=== PATIENT | female | born 1995 | race Hispanic/Latino ===

== ENCOUNTER 2024-08-10 18:59 | Emergency (ER) | payer OTHER ==
[2024-08-10 20:41] LABS: #Basophils 0.04 10x3/uL (0.0-0.2); #Eosinophils 0.19 10x3/uL (0.0-0.5); #Monocytes 0.99 10x3/uL (0.0-1.1); #Neutrophils 7.02 10x3/uL (1.5-8.4); %Basophils 0.3 % (0.0-2.0); %Eosinophils 1.6 % (0.0-6.0); %Lymphocytes 28.3 % (18.0-47.0); %Monocytes 8.6 % (0.0-10.0); %Neutrophils 60.8 % (40.0-75.0); Hematocrit 34.1 % (34.9-44.5); Hemoglobin 11.3 g/dL (12.0-15.5); Mean Corpuscular HGB CONC 33.1 g/dL (32.0-36.0); Mean Corpuscular Hemoglobin 29.7 pg (27.0-33.0); Mean Corpuscular Volume 89.7 fL (81.6-98.3); Mean Platelet Volume 9.2 fL (7.4-10.4); Platelet Count 292 10x3/uL (150-450); RBC Distribution Width 12.4 % (11.5-14.5); White Blood Cell (WBC) Count 11.6 10x3/uL (3.5-10.5)
[2024-08-10 20:50] LABS: ALT (SGPT) 37 U/L (8-55); AST (SGOT) 24 U/L (5-34); Albumin 3.4 g/dL (3.5-5.0); Alkaline Phosphatase 60 U/L (40-110); Anion Gap 14 mmol/L (10-20); BUN (Urea Nitrogen) 9 mg/dL (7.0-18.7); Bilirubin, Total 0.2 mg/dL (0.2-1.2); Calc. Creatinine Clearance 0 mL/min (70-130); Calcium 9.5 mg/dL (7.8-10.44); Carbon Dioxide 22 mmol/L (22-29); Chloride 104 mmol/L (98-107); Estimated GFR 116; Globulin 3.6 g/dL (2.4-3.5); Glucose 74 mg/dL (70-105); Potassium 3.6 mmol/L (3.5-5.1); Sodium 136 mmol/L (136-145)
[2024-08-10 22:08] LABS: Bilirubin Neg (Negative); Blood, Urine Negative (Negative); Clarity Slightly Cloudy (Clear); Glucose, Urine (Dipstick) Normal (Negative); Ketone, Urine 5 mg/dL (Negative); Leukocyte Negative (Negative); Nitrite Negative (Negative); Protein, Urine (Dipstick) Negative (Neg-Trace); Urobilinogen Normal mg/dL (Less than 2)
[2024-08-10 22:30] LABS: CAUTI Indications for Culture Pregnancy; RBC/HPF 0-3 HPF (0-3); WBC/HPF 0-3 HPF (0-3)
[2024-08-10 22:31] LABS: Bacteria/HPF 2+ HPF (None Seen); Mucous/LPF Rare LPF (<2+)
[2024-08-10 22:32] LABS: Urine Culture Reflex No No; Urine Culture Reflex Yes Yes
== END 2024-08-10 22:20 | disposition home or self-care (01) ==
LOC: CSHERS 18:59
DX: O99.891 Other specified diseases and conditions complicating pregnancy (principal); R10.32 Left lower quadrant pain
CPT/HCPCS: 36415; 76815; 80053; 81001; 84702; 85025; 86900; 86901; 87086

== ENCOUNTER 2024-08-19 22:47 | Emergency (ER) | payer OTHER ==
[2024-08-19 23:40] LABS: Bilirubin Neg (Negative); Blood, Urine Negative (Negative); Glucose, Urine (Dipstick) Normal (Negative); Ketone, Urine Negative (Negative); Leukocyte Negative (Negative); Nitrite Negative (Negative); Protein, Urine (Dipstick) 15 mg/dl (Neg-Trace); Specific Gravity, Urine 1.015 (1.005-1.030); Urobilinogen Normal mg/dL (Less than 2)
[2024-08-19] MEDS ORDERED: Metoclopramide HCl 10 MG (2 mL) VIAL ONE (23:45)
[2024-08-19 23:53] LABS: #Basophils 0.07 10x3/uL (0.0-0.2); #Eosinophils 0.17 10x3/uL (0.0-0.5); #Monocytes 0.84 10x3/uL (0.0-1.1); #Neutrophils 7.34 10x3/uL (1.5-8.4); %Basophils 0.6 % (0.0-2.0); %Eosinophils 1.5 % (0.0-6.0); %Lymphocytes 27.2 % (18.0-47.0); %Monocytes 7.2 % (0.0-10.0); %Neutrophils 63.1 % (40.0-75.0); Hematocrit 37.4 % (34.9-44.5); Hemoglobin 12.6 g/dL (12.0-15.5); Mean Corpuscular HGB CONC 33.7 g/dL (32.0-36.0); Mean Corpuscular Hemoglobin 29.9 pg (27.0-33.0); Mean Corpuscular Volume 88.6 fL (81.6-98.3); Mean Platelet Volume 9.3 fL (7.4-10.4); Platelet Count 321 10x3/uL (150-450); RBC Distribution Width 12.7 % (11.5-14.5); Red Blood Cell (RBC) Count 4.22 10x6/uL (3.90-5.03); White Blood Cell (WBC) Count 11.6 10x3/uL (3.5-10.5)
[2024-08-20 00:05] LABS: ALT (SGPT) 40 U/L (8-55); AST (SGOT) 25 U/L (5-34); Albumin 3.6 g/dL (3.5-5.0); Alkaline Phosphatase 60 U/L (40-110); Anion Gap 16 mmol/L (10-20); BUN (Urea Nitrogen) 11 mg/dL (7.0-18.7); Bilirubin, Total 0.3 mg/dL (0.2-1.2); Calc. Creatinine Clearance 0 mL/min (70-130); Calcium 9.6 mg/dL (7.8-10.44); Carbon Dioxide 18 mmol/L (22-29); Chloride 106 mmol/L (98-107); Estimated GFR 112; Globulin 4.1 g/dL (2.4-3.5); Glucose 73 mg/dL (70-105); Lipase 36 U/L (8-78); Magnesium 2.2 mg/dL (1.6-2.6); Potassium 3.9 mmol/L (3.5-5.1); Protein, Total 7.7 g/dL (6.0-8.3); Sodium 136 mmol/L (136-145)
[2024-08-20 00:29] LABS: Clarity Hazy (Clear)
[2024-08-20 00:30] LABS: Bacteria/HPF Rare-Few HPF (None Seen); CAUTI Indications for Culture Pregnancy; RBC/HPF 0-3 HPF (0-3)
[2024-08-20 00:31] LABS: Urine Culture Reflex No No; Urine Culture Reflex Yes Yes
== END 2024-08-20 01:11 | disposition home or self-care (01) ==
LOC: CSHERS 22:47
DX: O21.9 Vomiting of pregnancy, unspecified (principal); Z3A.18 18 weeks gestation of pregnancy
CPT/HCPCS: 80053; 81001; 83690; 83735; 85025; 87086; 93005; 96365; J2765

== ENCOUNTER 2025-07-13 11:03 | Day surgery (SDC) | payer OTHER, MEDICAID ==
[2025-07-13] MEDS ORDERED: hydrALAZINE 20 MG/ML VIAL SLOW IVP PRN (11:57)
== END 2025-07-13 14:15 | disposition home health service (06) ==
LOC: CSHLD/OP 11:03
PROVIDERS: ATTEND Family Medicine
DX: O36.8120 Decreased fetal movements, second trimester, not applicable or unspecified (principal); Z3A.24 24 weeks gestation of pregnancy; Z90.49 Acquired absence of other specified parts of digestive tract; Z90.89 Acquired absence of other organs; Z79.899 Other long term (current) drug therapy
CPT/HCPCS: 76815

== ENCOUNTER 2025-09-27 02:35 | Day surgery (SDC) | payer MEDICAID, OTHER ==
[2025-09-27 03:16] VITALS: BMI 32.4
[2025-09-27 03:16] LABS: Glucose, Urine (Dipstick) Normal (Negative); Leukocyte Negative (Negative); Protein, Urine (Dipstick) 15 mg/dl (Neg-Trace); Specific Gravity, Urine 1.015 (1.005-1.030)
[2025-09-27 03:30] LABS: CAUTI Indications for Culture Pregnancy
[2025-09-27 03:31] LABS: Bacteria/HPF Rare-Few HPF (None Seen); RBC/HPF None Seen HPF (0-3); WBC/HPF None Seen HPF (0-3)
[2025-09-27 03:39] LABS: Urine Culture Reflex Yes Yes
== END 2025-09-27 03:57 | disposition home or self-care (01) ==
LOC: CSHLD/OP 02:35
PROVIDERS: ATTEND Family Medicine
DX: O24.410 Gestational diabetes mellitus in pregnancy, diet controlled (principal); O09.43 Supervision of pregnancy with grand multiparity, third trimester; Z3A.35 35 weeks gestation of pregnancy
CPT/HCPCS: 36416; 81001; 87086; 99282

== ENCOUNTER 2025-10-23 17:37 | Inpatient (IN) | payer OTHER ==
[2025-10-23 19:04] VITALS: BMI 31.3
[2025-10-23 19:42] LABS: Glucose 111 mg/dL (70-105)
[2025-10-23] MEDS ORDERED: Diphenoxylate HCl/Atropine Tablet PO PRN (21:21)
[2025-10-23] MEDS ORDERED: Ondansetron PF 4 MG/2 ML Vial IVP PRN (21:21)
[2025-10-23] MEDS ORDERED: Lidocaine 1% (PF) 30 ML VIAL SC PRN (21:21)
[2025-10-23] MEDS ORDERED: Acetaminophen 500 MG TAB PO PRN (21:21)
[2025-10-23] MEDS ORDERED: Carboprost 250 MCG/ML AMP IM PRN (21:21)
[2025-10-23] MEDS ORDERED: Tranexamic Acid 1,000 MG/10 ML VIAL IVP PRN (21:21)
[2025-10-23] MEDS ORDERED: Methylergonovine 0.2 MG/ML VIAL IM PRN (21:21)
[2025-10-23] MEDS ORDERED: Ibuprofen 800 MG TAB PO PRN (21:21)
[2025-10-23] MEDS ORDERED: HYDROcodone/Acetaminophen 5/325 mg Tablet PO PRN (21:21)
[2025-10-23] MEDS ORDERED: hydrALAZINE 20 MG/ML VIAL SLOW IVP PRN (21:21)
[2025-10-23] MEDS ORDERED: Oxytocin 30 units/NS 500 ML 500 ML IV SCH (21:30)
[2025-10-23 22:31] LABS: Hematocrit 38.0 % (34.9-44.5); Hemoglobin 12.8 g/dL (12.0-15.5); Mean Corpuscular Hemoglobin 30.5 pg (27.0-33.0); Mean Corpuscular Volume 90.5 fL (81.6-98.3); Platelet Count 270 10x3/uL (150-450); Red Blood Cell (RBC) Count 4.20 10x6/uL (3.90-5.03); White Blood Cell (WBC) Count 12.04 10x3/uL (3.5-10.5)
[2025-10-23 23:10] LABS: Syphilis Antibody Index 0.04 S/CO (<1.00 Non-Reactive)
[2025-10-23 23:12] LABS: Hep B Surf Ag - L&D Non-Reactive S/CO (NonReactive)
[2025-10-24] MEDS: Oxytocin 30 units/NS 500 ML 500 ML IV SCH (06:59)
[2025-10-24] MEDS: fentaNYL/Ropivacaine Epidural 100 ML ONE (10:29)
[2025-10-24] MEDS ORDERED: Acetaminophen 325 MG TAB PO PRN (10:41)
[2025-10-24] MEDS ORDERED: diphenhydrAMINE 50 MG/ML VIAL IVP PRN (10:41)
[2025-10-24] MEDS ORDERED: Ondansetron PF 4 MG/2 ML Vial IVP PRN ×2 (10:41→16:58)
[2025-10-24] MEDS ORDERED: fentaNYL 2 mcg/Ropivacaine 0.2% Epidural 100 ML CADD EPIDURAL SCH (10:45)
[2025-10-24] MEDS ORDERED: Communication Order-Pharmacy FS SCH (10:45)
[2025-10-24] MEDS ORDERED: Bupivacaine 0.25% HCL 30 ML VIAL ONE (15:00)
[2025-10-24] MEDS ORDERED: hydrALAZINE 20 MG/ML VIAL SLOW IVP PRN (16:58)
[2025-10-24] MEDS ORDERED: Milk Of Magnesia 30 ML UDCUP PO PRN (16:58)
[2025-10-24] MEDS ORDERED: diphenhydrAMINE 25 MG CAP PO PRN (16:58)
[2025-10-24] MEDS ORDERED: Lanolin Ointment 7 GM TUBE TOP PRN (16:58)
[2025-10-24] MEDS ORDERED: Bisacodyl 10 MG SUPP PR PRN (16:58)
[2025-10-24] MEDS ORDERED: Benzocaine-Menthol 82.5 ML CAN TOP PRN (16:58)
[2025-10-24] MEDS: Ferrous Sulfate 325 MG TAB PO SCH (17:54)
[2025-10-24] MEDS: Ibuprofen 800 MG TAB PO SCH (18:06)
[2025-10-24] MEDS: HYDROcodone/Acetaminophen 5/325 mg Tablet PO PRN (22:30)
[2025-10-25] MEDS: Ibuprofen 800 MG TAB PO SCH (00:18)
[2025-10-25] MEDS: Ferrous Sulfate 325 MG TAB PO SCH (07:39)
[2025-10-25 11:43] VITALS: BP 117/70; TEMP 98.7
== END 2025-10-25 16:00 | disposition home or self-care (01) | DRG 807 ==
LOC: CSHLD 17:37 → CSHPP 10-24 16:32
PROVIDERS: ADMIT Family Medicine; ATTEND Family Medicine
PROC: 10907ZC Drainage of Amniotic Fluid, Therapeutic from Products of Conception, Via Natural or Artificial Opening (ICD-10-PCS; principal; 2025-10-23)
PROC: 10E0XZZ Delivery of Products of Conception, External Approach (ICD-10-PCS; 2025-10-23)
PROC: 3E033VJ Introduction of Other Hormone into Peripheral Vein, Percutaneous Approach (ICD-10-PCS; 2025-10-23)
PROC: 0UQMXZZ Repair Vulva, External Approach (ICD-10-PCS; 2025-10-23)
DX: O24.424 Gestational diabetes mellitus in childbirth, insulin controlled (principal); O70.0 First degree perineal laceration during delivery; Z37.0 Single live birth; Z3A.39 39 weeks gestation of pregnancy
CPT/HCPCS: 36416; 51702; 82947; 85027; 86780; 86850; 86900; 86901; 87340; J0665; J2590